=== PATIENT | male | born 1960 | race Caucasian/White ===

== ENCOUNTER 2021-04-25 08:06 | Day surgery (SDC) | payer OTHER ==
[~2021-04-25] VITALS: Ht 177.8 cm; Wt 85.0 kg
[~2021-04-25 08:06] MED LIST: LEVSOD50 PO; Nitrostat0.4 MG SL
[2021-04-25] MEDS ORDERED: Prinivil10 MG PO (08:35)
--- NOTE | 2021-04-25 11:34 | NUR ---
04/25/21 1134 TOMÁS GURROLA POLAR PACK GIVEN. DENIES PAIN. EATING AND DRINKING W/O DIFF
== END 2021-04-25 11:35 | disposition home or self-care (01) ==
LOC: ORSCSDS 08:06
PROVIDERS: Orthopaedic Surgery
PROC: 0SBD4ZZ Excision of Left Knee Joint, Percutaneous Endoscopic Approach (ICD-10-PCS; principal; 2021-04-25 09:15)
DX: S83.242A Other tear of medial meniscus, current injury, left knee, initial encounter (principal); I10 Essential (primary) hypertension; E05.90 Thyrotoxicosis, unspecified without thyrotoxic crisis or storm; Z79.899 Other long term (current) drug therapy
CPT/HCPCS: J0171; J0690; J1100; J1885; J2250; J2405; J2704; J3010; J7120

== ENCOUNTER 2021-11-15 12:48 | Observation (INO) | payer OTHER ==
[~2021-11-15] VITALS: Ht 177.8 cm; Wt 84.4 kg
[~2021-11-15 12:48] MED LIST changes: +Prinivil10 MG PO
[2021-11-15 13:53] LABS: BASOPHILS ABSOLUTE AUTO 0.05 K/mm3 (0.00-0.23); BASOPHILS PERCENT AUTO 1 % (0-2); EOSINOPHILS ABSOLUTE AUTO 0.27 K/mm3 (0.00-0.68); EOSINOPHILS PERCENT AUTO 3 % (0-6); Hematocrit 42.3 % (37.0-53.0); Hemoglobin 14.6 g/dL (13.5-17.5); IMMATURE GRAN ABSOLUTE AUTO 0.03 K/mm3 (0.00-0.10); IMMATURE GRAN PERCENT AUTO 0 % (0-1); LYMPHOCYTES ABSOLUTE AUTO 1.81 K/mm3 (0.84-5.20); LYMPHOCYTES PERCENT AUTO 19 % (21-46); MONOCYTES ABSOLUTE AUTO 0.62 K/mm3 (0.16-1.47); MONOCYTES PERCENT AUTO 7 % (4-13); Mean Corpuscular HGB 31.3 pg (26.0-34.0); Mean Corpuscular HGB Conc 34.5 g/dL (31.5-36.5); Mean Corpuscular Volume 91 fL (80-100); Mean Platelet Volume 10.8 fL (9.1-12.4); NEUTROPHILS ABSOLUTE AUTO 6.77 K/mm3 (1.96-9.15); NEUTROPHILS PERCENT AUTO 71 % (41-73); Platelet Count 233 K/mm3 (150-400); RDW Coefficient Variation 12.1 % (11.7-14.2); RDW Standard Deviation 40.1 fL (35.1-46.3); Red Blood Cell Count 4.67 M/mm3 (4.30-5.90); White Blood Cell Count 9.55 K/mm3 (4.00-11.30)
[2021-11-15 14:22] LABS: Alanine Aminotransfer (ALT/SGP 21 U/L (12-78); Albumin, Blood 3.7 g/dL (3.4-5.0); Albumin/Globulin Ratio 1.3 (0.8-1.8); Alk Phos 59 U/L (50-136); Anion Gap 8 mmol/L (6-16); Aspartate Aminotrans (AST/SGOT 19 U/L (12-37); Bilirubin, Total 0.5 mg/dL (0.1-1.0); Blood Urea Nitrogen 14 mg/dL (8-24); Bun/Creatinine Ratio 14.3 (12.0-20.0); CO2, Blood 22 mmol/L (21-32); Calcium, Blood 8.9 mg/dL (8.5-10.1); Chloride, Blood 112 mmol/L (98-108); Creatinine, Blood 0.98 mg/dL (0.60-1.20); Globulin, Blood 2.8 g/dL (2.2-4.0); Glomerular Filtration Rate >60 (60-); Glucose, Blood 95 mg/dL (70-99); Sodium, Blood 142 mmol/L (136-145); Total Protein, Blood 6.5 g/dL (6.4-8.2)
[2021-11-15 15:13] LABS: Free Thyroxine 1.07 ng/dL (0.70-1.60)
[2021-11-15 15:14] LABS: Triiodothyronine, Free 2.44 pg/mL (2.18-3.98)
[2021-11-16 05:35] LABS: BASOPHILS ABSOLUTE AUTO 0.04 K/mm3 (0.00-0.23); BASOPHILS PERCENT AUTO 1 % (0-2); EOSINOPHILS PERCENT AUTO 8 % (0-6); Hemoglobin 14.8 g/dL (13.5-17.5); IMMATURE GRAN ABSOLUTE AUTO 0.01 K/mm3 (0.00-0.10); IMMATURE GRAN PERCENT AUTO 0 % (0-1); LYMPHOCYTES ABSOLUTE AUTO 2.42 K/mm3 (0.84-5.20); LYMPHOCYTES PERCENT AUTO 36 % (21-46); MONOCYTES ABSOLUTE AUTO 0.48 K/mm3 (0.16-1.47); MONOCYTES PERCENT AUTO 7 % (4-13); Mean Corpuscular HGB 31.2 pg (26.0-34.0); Mean Corpuscular HGB Conc 34.4 g/dL (31.5-36.5); Mean Corpuscular Volume 91 fL (80-100); Mean Platelet Volume 10.5 fL (9.1-12.4); NEUTROPHILS ABSOLUTE AUTO 3.25 K/mm3 (1.96-9.15); NEUTROPHILS PERCENT AUTO 49 % (41-73); Platelet Count 244 K/mm3 (150-400); RDW Coefficient Variation 12.3 % (11.7-14.2); Red Blood Cell Count 4.74 M/mm3 (4.30-5.90)
--- NOTE | 2021-11-16 05:55 | NUR ---
SHIFT REPORT ALERT X'S 4. DENIED CHEST PAIN OR SOB THROUGH NIGHT, RESPIRATIONS EVEN AND UNLABORED. SLEPT WELL. TELE S/B 48 AT TIMES, ASYMPTOMATIC. NPO AFTER 12AM. INDEPENDENT IN ROOM. SAFETY MAINTAINED, CALL [place] IN REACH.
[2021-11-16 06:01] LABS: Anion Gap 4 mmol/L (6-16); Blood Urea Nitrogen 14 mg/dL (8-24); Bun/Creatinine Ratio 14.2 (12.0-20.0); CHOL/HDL RATIO 4.4; CO2, Blood 27 mmol/L (21-32); Calcium, Blood 8.6 mg/dL (8.5-10.1); Chloride, Blood 112 mmol/L (98-108); Cholesterol 166 mg/dL (50-200); Creatinine, Blood 0.99 mg/dL (0.60-1.20); Glomerular Filtration Rate >60 (60-); Glucose, Blood 90 mg/dL (70-99); HDL Cholesterol 38 mg/dL (>39); LDL/HDL RATIO 2.7; Low Density Lipoprotein Chol 104 mg/dL (0-110); Potassium, Blood 4.2 mmol/L (3.5-5.5); Sodium, Blood 143 mmol/L (136-145); Triglycerides 119 mg/dL (30-160); Very Low Density Lipoprot Chol 23 mg/dL (6-32)
--- NOTE | 2021-11-16 12:16 | NUR ---
Initial Interview with [facility] Community Sourcing Engineer 1. Who did you speak with? Spoke with patient and Marija 2. What is the patient's prior level of functions? [place]. He is able to perform ADL's independently. DME: BP monitor. 3. Is the patient and/or family able to provide transportation to and from doctor's appointments and tile picker prescriptions? Patient has an active ups driver's license and able to provide transportation to and from as needed. 4. Does patient still drive? yes 5. POA/PCP/NOK: Spouse Marija Mccrary [phone] Leonila Interiano [facility] 6. Discharge goals: TBD -Home Health: no preference if needed -Group Home Facility: N/A -DME: TBD/none -Medication Management: self manages -Preferred Pharmacy: [facility] -Housekeeping/Cooking: patient and completes 7. List barriers to discharge: None known at this time 8. Discharge Plan: TBD/Home 9. PCP Follow up appointment: Will be scheduled within seven calendar days of discharge 10. Other Notes: Patient is not a . Explained importance of hospital follow-up with PCP within 7 days of discharge. Confirmed (patient does not use home phone-please call cell). Patient has a support network.
[2021-11-16 16:10] LABS: Influenza A, PCR NEGATIVE (NEGATIVE); Influenza B, PCR NEGATIVE (NEGATIVE); Resp Syncytial Virus, PCR NEGATIVE (NEGATIVE); SARS-Cov-2 (COVID-19) PCR, MMC NEGATIVE (NEGATIVE)
--- NOTE | 2021-11-16 17:09 | NUR ---
PATIEMT IS AWAKE,ALERT AND ORIENTED TIMES THREE. DENIES PAINS. PATIENT WILL NOT BE ABLE TO COMPLETE THE CT CORONARY TONIGHT PER CT PERSONNEL. TEST WILL BE COMPLETED IN THE MORNING. DR. FATIMA MADE AWARE AND ADVISED NURSE THAT PATIENT CAN EAT AND SHOULD REMAIN NPO AFTER MIDNIGHT. PATIENT AT BEDSIDE UPATED ON PLAN OF CARE. PHARMACY WAS MADE AWARE TO CHANGE THE TIME FOR THE LOPRESSOR, MEDICATION IS ORDER TO BE GIVEN 30 MIN BEFORE EXAM.
--- NOTE | 2021-11-17 04:51 | NUR ---
SHIFT ALERT AND ORIENTED X'S 4. DENIED SOB OR CHEST PAIN THROUGH NIGHT. NPO AFTER MIDNIGHT. SLEPT WELL. SAFETY MAINTAINED, CALL [place] IN REACH.
--- NOTE | 2021-11-17 14:23 | NUR ---
Pt resting in bed upon arrival. Pt's spouse at bedside. Metabolic Specialist in to discuss results of tests and recommendations. After java development team lead leaves this RN answered questions related to recommendations. Discussed considering completing an advanced directive. Pt and spouse report having one completed already at home. Requested for Pt to drop copy at medical records to scan into his health record. Pt and spouse express appreciation and report no concerns at this time. Palliative Care will remain available.
[2021-11-17] MEDS ORDERED: ATOR40TA PO (14:49)
--- NOTE | 2021-11-17 15:40 | NUR ---
DISCHARGE INSTRUCTION GIVEN TO PATIENT, PATIENT VERBALIZED UNDERSTANDING. IV AND TELEMETRY PACK REMOVED PER PROTOCOL. PATIENT WAS ADVISED TO FOLLOW-UP WITH PCP.PATIENT VERBAILZED AND STRESS THE IMPORTANCE OF FOLLOWING UP MD.
--- NOTE | 2021-11-18 12:49 | NUR ---
Per Dr. Mcduffie discharge appropriate. Patient does not oppose discharge. Patient is discharged home to residence. 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 Reinforced importance of hospital follow-up with PCP. Provider/PCP: Dr. Leonila Interiano When: WITHIN 1 WEEK Specialty: need to follow up with cardiology clinic Confirmed numbers: Patient [phone] and Spouse Marija [phone] Comment: Patient to contact PCP if any questions regarding medication management, social service needs, and if condition worsens go to Urgent Care/ER. No barriers to discharge. Patient has a strong support network.
== END 2021-11-17 16:00 | disposition home or self-care (01) ==
LOC: ER 12:48 → MEDS 12:49 → ER 18:43 → MEDS 11-16 23:03
PROVIDERS: Emergency Medicine; Internal Medicine Interventional Cardiology; Student in an Organized Health Care Education/Training Program; ADMIT Internal Medicine
DX: I21.4 Non-ST elevation (NSTEMI) myocardial infarction (principal); I47.1 Supraventricular tachycardia; I10 Essential (primary) hypertension; E05.90 Thyrotoxicosis, unspecified without thyrotoxic crisis or storm; Z79.899 Other long term (current) drug therapy; Z20.822 Contact with and (suspected) exposure to COVID-19
CPT/HCPCS: 0241U; 36415; 71046; 75571; 75574; 80048; 80053; 80061; 83036; 84439; 84443; 84481; 84484; 85025; 85379; 93005; 93010; 93242; 93306; 96372; 99285-25; A9270; G0378; J1650; Q9967

== ENCOUNTER 2023-01-11 10:11 | Day surgery (SDC) | payer OTHER ==
[~2023-01-11] VITALS: Ht 177.8 cm; Wt 82.7 kg
[~2023-01-11 10:11] MED LIST changes: +ATOR40TA PO
[2023-01-11 12:21] VITALS: BP 115/62
== END 2023-01-11 12:24 | disposition home or self-care (01) ==
LOC: ORSCSDS 10:11
PROVIDERS: Internal Medicine Gastroenterology
PROC: 0DBN8ZX Excision of Sigmoid Colon, Via Natural or Artificial Opening Endoscopic, Diagnostic (ICD-10-PCS; principal; 2023-01-11 11:30)
PROC: 0DBH8ZX Excision of Cecum, Via Natural or Artificial Opening Endoscopic, Diagnostic (ICD-10-PCS; principal; 2023-01-11 11:30)
DX: Z12.11 Encounter for screening for malignant neoplasm of colon (principal); D12.0 Benign neoplasm of cecum; K63.5 Polyp of colon; K57.30 Diverticulosis of large intestine without perforation or abscess without bleeding; I10 Essential (primary) hypertension; I82.409 Acute embolism and thrombosis of unspecified deep veins of unspecified lower extremity; I25.2 Old myocardial infarction; I47.1 Supraventricular tachycardia; Z83.71 Family history of colonic polyps; Z79.899 Other long term (current) drug therapy
CPT/HCPCS: 88305; J2704; J7120

== ENCOUNTER 2023-03-27 21:07 | Inpatient (IN) | payer OTHER, MEDICARE ==
[~2023-03-27] VITALS: Ht 177.8 cm; Wt 84.5 kg
[2023-03-28 00:10] LABS: BASOPHILS ABSOLUTE AUTO 0.03 K/mm3 (0.00-0.23); BASOPHILS PERCENT AUTO 0 % (0-2); EOSINOPHILS ABSOLUTE AUTO 0.08 K/mm3 (0.00-0.68); EOSINOPHILS PERCENT AUTO 1 % (0-6); Hematocrit 38.5 % (37.0-53.0); Hemoglobin 13.7 g/dL (13.5-17.5); IMMATURE GRAN ABSOLUTE AUTO 0.04 K/mm3 (0.00-0.10); IMMATURE GRAN PERCENT AUTO 0 % (0-1); LYMPHOCYTES ABSOLUTE AUTO 1.21 K/mm3 (0.84-5.20); LYMPHOCYTES PERCENT AUTO 11 % (21-46); MONOCYTES ABSOLUTE AUTO 0.88 K/mm3 (0.16-1.47); MONOCYTES PERCENT AUTO 8 % (4-13); Mean Corpuscular HGB 31.6 pg (26.0-34.0); Mean Corpuscular HGB Conc 35.6 g/dL (31.5-36.5); Mean Corpuscular Volume 89 fL (80-100); Mean Platelet Volume 10.1 fL (9.1-12.4); NEUTROPHILS ABSOLUTE AUTO 8.54 K/mm3 (1.96-9.15); NEUTROPHILS PERCENT AUTO 79 % (41-73); Platelet Count 215 K/mm3 (150-400); RDW Coefficient Variation 12.3 % (11.7-14.2); RDW Standard Deviation 39.8 fL (35.1-46.3); Red Blood Cell Count 4.34 M/mm3 (4.30-5.90); White Blood Cell Count 10.78 K/mm3 (4.00-11.30)
[2023-03-28 00:40] LABS: Albumin, Blood 3.6 g/dL (3.4-5.0); Albumin/Globulin Ratio 1.3 (0.8-1.8); Bilirubin, Total 0.5 mg/dL (0.1-1.0); Bun/Creatinine Ratio 20.9 (12.0-20.0); Creatinine, Blood 0.86 mg/dL (0.60-1.20); Globulin, Blood 2.7 g/dL (2.2-4.0); Potassium, Blood 4.2 mmol/L (3.5-5.5); Total Protein, Blood 6.3 g/dL (6.4-8.2)
[2023-03-28 01:40] VITALS: BP 179/88
[2023-03-28 04:33] VITALS: BP 151/95
[2023-03-28 04:34] VITALS: BP 151/95
--- NOTE | 2023-03-28 05:52 | NUR ---
LEFT CALF SWELLING PT COMPLANING OF INCREASED BURNING AND SWELLING IN LEFT CALF THIS AM. PT DESCRIBES IT A "TIGHTNESS". LEG DOES APPEAR MORE VISABLY SWOLLEN THAN EARLIER WHEN H ARRIVED TO THE UNIT. PT ALSO REPORTS A TINGLING SENSATION. AREA IS SOFT TO TOUCH, AND DOES FEEL HOT. PULSES GOOD. CONTROL SPECIALIST TRUDY MERCER, AND DR. ADRINA NOTIFIED THIS AM AND WILL ORDER IMAGING. LEG ELEVATED ON PILLOWS.
--- NOTE | 2023-03-28 06:35 | NUR ---
SHIFT SUMMARY PT ER ADMIT THIS SHIFT AFTER FALLING OFF OF HIS HORSE. PT SUSTAINED LEFT RIB FRACTURES WELL A TRACE HEMOTHORAX. NO CHEST TUBE ORDERED, PT HAS BEEN MAINTAINING SATS ON RA. PT REPORTS DIFFICULTY GETTING A DEEP BREATH IN D/T RIB PAIN, LUNGS DIMININISED. PAIN HAS BEEN WELL MANANGED WITH IV DILAUDID. PT REPORTS SOME N/T IN LEFT HAND POST FALL, BUT HAS FULL FUNCTION IN HIS HAND AND HIS ABLE TO WIGGLE FINGERS. LEFT CALF TO KNEE SWOLLEN UPON ADMIT AND APPEARS MORE SWOLLEN THIS AM. DR. ADRIAN NOTIFIED, IMAGING ORDERED. DR. ADRIAN ASSESSED PT THIS AM AND WILL CONSULT ORTHO FOR FURTHER ASSESSMENT AND MANAGEMENT. VITALS ARE STABLE. PT NPO THIS AM PER DR. ADRIAN ORDERS. FIRE RISK ASSESSED THIS SHIFT, PT EDUCATED ON IGNITION RISK AND SOURCES. PT DENIES POSSESSING IGNITION SOURCES.
[2023-03-28 08:33] VITALS: BP 161/83
[2023-03-28 14:56] VITALS: BP 114/77
[2023-03-28 19:43] VITALS: BP 140/72
--- NOTE | 2023-03-28 19:58 | NUR ---
SHIFT SUMMARY PAIN MANAGEMENT WAS ACHIEVED WITH PO MEDICATION AND IV TORADOL. PT WAS OOB WITH SBA THIS SHIFT. SWELLING TO L LEG APPEARS TO BE DECREASING WITH KELSIE WRAP IN PLACE AND PT REPORTS N/T IS SUBSIDING. PT IS USING HIS INCENTIVE SPIROMETER BUT HAS NEEDED SOME REMINDING. PT'S IS AT THE BEDSIDE FOR SUPPORT. REPORT GIVEN TO JEANNE SWIFT.
[2023-03-29 04:00] VITALS: BP 156/79
[2023-03-29 04:28] LABS: Hematocrit 38.4 % (37.0-53.0); Hemoglobin 13.2 g/dL (13.5-17.5); Mean Corpuscular HGB 31.4 pg (26.0-34.0); Mean Corpuscular HGB Conc 34.4 g/dL (31.5-36.5); Mean Corpuscular Volume 91 fL (80-100); Mean Platelet Volume 10.1 fL (9.1-12.4); Platelet Count 203 K/mm3 (150-400); RDW Coefficient Variation 12.6 % (11.7-14.2); RDW Standard Deviation 41.8 fL (35.1-46.3); Red Blood Cell Count 4.21 M/mm3 (4.30-5.90); White Blood Cell Count 7.78 K/mm3 (4.00-11.30)
[2023-03-29 04:57] LABS: Bun/Creatinine Ratio 18.1 (12.0-20.0); Calcium, Blood 8.4 mg/dL (8.5-10.1); Creatinine, Blood 1.05 mg/dL (0.60-1.20); Magnesium, Blood 2.2 mg/dL (1.6-2.4); Potassium, Blood 4.1 mmol/L (3.5-5.5)
--- NOTE | 2023-03-29 05:03 | NUR ---
SHIFT SUMMARY PT AOX4, SBA W/FWW. PAIN MANAGED WELL WITH PO OXY, AND TORADOL. VOIDING AND TOLERATING REGULAR DIET.LLE WITH KELSIE WRAP FOR COMPRESSION. PALPABLE PEDAL PULSES, DENIES N/T IN LIGIA LE. PATIENT WOKE ABOUT 0400 TO USE BATHROOM REPORTED NUMBNESS IN LIGIA ARMS FROM FOREARM DOWN TO HANDS. HANDS NOTED TO BE COLD TO TOUCH. CAP REFILL <3. WARM BLANKET BROUGHT TO PATIENT AND HE REPORTS, "THEY FEEL LIKE THEY FELL ASLEEP, BUT ARE FEELING BETTER AND GETTING WARMER". PATIENT IS ABLE TO MOVE HANDS AND FINGERS FREELY. SCD TO RLE. VSS, PATIENT IS USING IS AT BEDSIDE. CALL LIGHT IS IN REACH. WILL REPORT TO DAY RN.
[2023-03-29 07:35] VITALS: BP 135/71
--- NOTE | 2023-03-29 08:00 | NUR ---
PT ASSESSED FOR IGNITION SOURCES.
[2023-03-29 14:18] VITALS: BP 144/86
[2023-03-29] MEDS ORDERED: ACET500 PO (14:47)
[2023-03-29] MEDS ORDERED: IBUP400 PO (14:48)
[2023-03-29] MEDS ORDERED: SENN187 PO (14:49)
[2023-03-29] MEDS ORDERED: OXYC5 PO (14:49)
--- NOTE | 2023-03-29 15:32 | NUR ---
Pt. is awake in bed and he welcomes my visit. Pt. is pleasant. Facilitate a life review and consider matters of froy and belief while establishing rapport. Pt. displays evidence of trust, awareness and engagement. Pt. verbalizes being ready to be discharged. Prayed with Pt. and was introduced to Pts. spouse at the end of the visit. Pt. verbalized gratitude for the spiritual care visit.
--- NOTE | 2023-03-29 15:43 | NUR ---
DISCHARGE PT AND HIS WERE PROVIDED WITH WRITTEN AND VERBAL DISCHARGE INSTRUCTIONS, THEY REPORTED UNDERSTANDING. PRESCRIPTIONS SENT BY DR. ADRIAN TO HIS PHARMACY. PAIN MANAGED AT TIME OF DISCHARGE. VSS. PT INSTRUCTED ABOUT THE NEXT TIME HE CAN HAVE PAIN MEDICATION AND PROVIDED INSTRUCTION ABOUT PAIN MEDICATION. PT MEETING ALL GOALS AT TIME OF DISCHARGE, PAIN MANAGED, TOLERATING PO, AMBULATING, AND PT HAD A BM PRIOR TO DISCHARGE. PT ASSISTED OUT IN W/C AT 1534.
== END 2023-03-29 15:34 | disposition home or self-care (01) | DRG 200 ==
LOC: ER 21:07 → SURS 21:08
PROVIDERS: Student in an Organized Health Care Education/Training Program; ADMIT Surgery
DX: S27.1XXA Traumatic hemothorax, initial encounter (principal); S22.42XA Multiple fractures of ribs, left side, initial encounter for closed fracture; W01.0XXA Fall on same level from slipping, tripping and stumbling without subsequent striking against object, initial encounter; W55.12XA Struck by horse, initial encounter; I10 Essential (primary) hypertension; S80.02XA Contusion of left knee, initial encounter; E78.5 Hyperlipidemia, unspecified; Z79.811 Long term (current) use of aromatase inhibitors; Z79.899 Other long term (current) drug therapy; Z98.890 Other specified postprocedural states; Z79.02 Long term (current) use of antithrombotics/antiplatelets
CPT/HCPCS: 36415; 71260; 73560-LT; 73600; 73701; 74177; 80048; 80053; 83735; 85025; 85027; 86850; 86900; 86901; 93005; 93010; 96374-59; 96375-59; 96376; 97110; 97116; 97162; 97166; 97530; 97535; 99285-25; A9270; G0378; J1170; J1885; Q9967

== ENCOUNTER 2025-05-26 05:44 | Day surgery (SDC) | payer OTHER ==
[2025-05-26] VITALS (10 sets, daily range): BP systolic 148–188; BP diastolic 75–88
[~2025-05-26] VITALS: Ht 177.8 cm; Wt 83.4 kg
[~2025-05-26 05:44] MED LIST changes: +ACET500 PO; +HYDROCHLOROTH12.5 MG PO; +IBUP400 PO; +OXYC5 PO; -Prinivil10 MG PO; +SENN187 PO; +ZESTRIL40 M1 PO
[2025-05-26] MEDS ORDERED: Bupivacaine 0.25% Epi 1:200000 30 ML Vial ONE (07:01)
[2025-05-26] MEDS ORDERED: Rocuronium Bromide 10 MG/ML 5ML Injection IV ONE (07:07)
[2025-05-26] MEDS ORDERED: FentaNYL Citrate 50 MCG/ML 2 ML Injection ONE (07:07)
[2025-05-26] MEDS ORDERED: Midazolam HCl 1MG / ML 2ML Vial ONE (07:07)
[2025-05-26] MEDS ORDERED: Ketorolac Tromethamine 30mg Vial ONE (07:30)
[2025-05-26] MEDS ORDERED: Dexamethasone Sod Phos 10 MG/ML 1ML VIAL ONE (07:30)
[2025-05-26] MEDS ORDERED: Ondansetron HCl 2 MG / ML 2ML Vial ONE (07:30)
[2025-05-26] MEDS ORDERED: Ondansetron HCl 2 MG / ML 2ML Vial IV PRN (08:10)
[2025-05-26] MEDS ORDERED: HYDROmorphone HCl/Pf 1MG SYR IV PRN ×2 (08:15)
[2025-05-26] MEDS ORDERED: FentaNYL Citrate 50 MCG/ML 2 ML Injection IV PRN ×2 (08:15)
[2025-05-26] MEDS ORDERED: Sugammadex Sodium 200 MG/2ML SDV (100 MG/ML) ONE (08:15)
[2025-05-26] MEDS ORDERED: HYDROmorphone HCl/Pf 1MG SYR ONE (08:16)
--- NOTE | 2025-05-26 08:22 | NUR ---
05/26/25 0822 Ewa Abernathy NO PREOP ANTIBIOTICS ORDERED PER .
[2025-05-26] MEDS ORDERED: OxyCODONE 5 mg/Acetamin 325 mg TABLET PO PRN (08:50)
--- NOTE | 2025-05-26 10:06 | NUR ---
Discharge instructions reviewed with patient. Patient verbalizes understanding. Copy given to patient to take home. Dressing X3 c/d/i. Prescription already picked up. Pt instructed to take skipped BP medication when home. Pt states low HR baseline. Patient States Post-Procedure ride home has been arranged. Discharged via wheelchair to private car for ride home.
== END 2025-05-26 10:10 | disposition home or self-care (01) ==
LOC: ORSCMMR 05:44 → ORD 07:30 → ORSCMMR 10:10
PROVIDERS: Surgery
PROC: 8E0W4CZ Robotic Assisted Procedure of Trunk Region, Percutaneous Endoscopic Approach (ICD-10-PCS; principal; 2025-05-26 07:30)
PROC: 0YU64JZ Supplement Left Inguinal Region with Synthetic Substitute, Percutaneous Endoscopic Approach (ICD-10-PCS; principal; 2025-05-26 07:30)
DX: K40.90 Unilateral inguinal hernia, without obstruction or gangrene, not specified as recurrent (principal); I10 Essential (primary) hypertension; I25.10 Atherosclerotic heart disease of native coronary artery without angina pectoris; Z79.899 Other long term (current) drug therapy
CPT/HCPCS: A9270; C1781; J1100; J1171; J1885; J2250; J2405; J2704; J3010; J7120